=== PATIENT | female | born 1945 | race Caucasian/White ===

== ENCOUNTER 2017-02-10 21:54 | Emergency (ER) | payer MEDICARE, OTHER ==
[~2017-02-10] VITALS: Ht 165.1 cm; Wt 98.0 kg
[~2017-02-10 21:54] MED LIST: DIPH25TA31 PO; HYDR25TA4 PO; METO-169 PO; MONT5CHW17 PO; PANT1INJ3 IV; SUCR1SUS10 PO; SUCR1TAB PO
[2017-02-11 00:15] LABS: Urine RBC None Seen /hpf (0 - 4)
[2017-02-11 00:20] LABS: Hemoglobin 11.6 g/dL (12.2-16.2); Mean Platelet Volume 7.1 fL (6.9-10.8); Neutrophils # (auto) 10.3 uL; Nucleated Red Blood Cells % 0.1 %
[2017-02-11 00:22] LABS: Basophils # (auto) 0.1 uL; Basophils % (auto) 0.8 % (0.0-2.0); Eosinophils # (auto) 0.1 uL; Eosinophils % (auto) 1.2 % (0.0-7.0); Hematocrit 35.8 % (36.0-46.0); Lymphocytes # (auto) 0.8 uL; Lymphocytes % (auto) 6.9 % (10.0-50.0); Mean Corpuscular Hemoglobin 26.5 pg (28.0-32.0); Mean Corpuscular Hgb Conc. 32.4 g/dL (32.0-36.0); Mean Corpuscular Volume 81.8 fL (80.0-100.0); Monocytes # (auto) 0.8 uL; Monocytes % (auto) 6.7 % (0.0-12.0); Neutrophils % (auto) 84.4 % (37.0-80.0); Platelet Count (auto) 277 10^3/uL (140-450); Red Cell Distribution Width 15.9 % (11.8-14.3); White Blood Cell 12.3 10^3/uL (4.4-10.8)
[2017-02-11 00:28] LABS: Urine Bilirubin Negative (Negative); Urine Blood Negative /uL (Negative); Urine Color Colorless (Yellow); Urine Glucose Normal (Normal); Urine Ketone Negative (Negative); Urine Mucus FEW (None Seen); Urine Nitrite Negative (Negative); Urine Squamous Epithelial Cell FEW /hpf (<5); Urine Urobilinogen Normal (Negative)
[2017-02-11 00:36] LABS: Albumin 3.1 g/dL (3.4-5.0); Anion Gap 8 (5-15); Aspartate Aminotransferase 34 U/L (15-37); Blood Urea Nitrogen 6 mg/dL (7-18); Calcium 8.7 mg/dL (8.5-10.1); Carbon Dioxide 30 mmol/L (21-32); Chloride 90 mmol/L (98-107); GFR African American 186 mL/min; GFR Non-African American 154 mL/min; Glucose 99 mg/dL (74-106); Magnesium 1.7 mg/dL (1.6-2.6); Sodium 128 mmol/L (136-145)
[2017-02-11 00:41] LABS: Alkaline Phosphatase 86 U/L (45-117); Bilirubin, Total 0.4 mg/dL (0.2-1.0); Total Protein 6.6 g/dL (6.4-8.2)
[2017-02-11 00:45] LABS: B-Type Natriuretic Peptide 90.5 pg/mL (0-100); Temperature: 21.5 C (20.0-25.0)
[2017-02-11 01:02] LABS: Allen Test Yes; Base Excess 5.8 mmol/L (-2.0-2.0); Blood 02Sat 91.3 % (96-100); Blood COHb 0.3 % (0.5-1.5); Blood MetHb 0.3 % (0.0-1.5); HCO3 31.6 mmol/L (22-26.0); HHb 8.6 % (0.0-5.0); MODE NASAL CANNULA; O2Hb 90.8 % (94.0-97.0); PCO2 51.1 mmHg (35.0-45.0); PCO2(T) 50.4 mmHg (35.0-45.0); PO2(T) 62.7 mmHg (80.0-100.0); Sample Type Arterial; pH 7.409 (7.350-7.450)
[2017-02-11] MEDS ORDERED: HCTZ 25 MG TAB PO ONE (02:45)
[2017-02-11 06:12] VITALS: BP 149/67
[2017-02-11] MEDS ORDERED: ACETAMINOPHEN 500 MG TAB PO PRN (06:45)
[2017-02-11] MEDS ORDERED: ONDANSETRON HCL 4 MG/2 ML VIAL IV PRN (06:45)
[2017-02-11] MEDS ORDERED: ALBUTEROL SULF 2.5 MG/0.5ML(0.5%) NEB SOLN NEB PRN (06:45)
[2017-02-11] MEDS ORDERED: HYDROcodone-ACET 5/325MG TAB PO PRN (06:45)
[2017-02-11] MEDS ORDERED: TEMAZEPAM 15 MG CAP PO PRN (06:45)
[2017-02-11] MEDS ORDERED: SUCRALFATE 1 GM TAB PO SCH (07:00)
[2017-02-11] MEDS ORDERED: amLODIPine BESYLATE 5 MG TAB PO SCH (10:00)
[2017-02-11] MEDS ORDERED: PANTOPRAZOLE 40 MG TAB PO SCH (10:00)
[2017-02-11] MEDS ORDERED: MONTELUKAST SODIUM 10 MG TAB PO SCH (22:00)
[2017-02-14] MEDS ORDERED: MONT5CHW17 PO (11:39)
[2017-02-14] MEDS ORDERED: HYDR25TA4 PO (11:42)
[2017-02-14] MEDS ORDERED: PANT40TA2 PO (11:42)
[2017-02-14] MEDS ORDERED: ATOR10TA52 PO (11:42)
[2017-02-14] MEDS ORDERED: AML5T PO (11:42)
== END 2017-02-11 06:44 | disposition left against medical advice (07) ==
LOC: EDBD 21:54 → ER 21:56
DX: R60.0 Localized edema (principal); I11.0 Hypertensive heart disease with heart failure; I50.9 Heart failure, unspecified; D72.829 Elevated white blood cell count, unspecified; E87.1 Hypo-osmolality and hyponatremia; E78.5 Hyperlipidemia, unspecified; J44.9 Chronic obstructive pulmonary disease, unspecified; Z88.2 Allergy status to sulfonamides; Z88.6 Allergy status to analgesic agent; Z88.8 Allergy status to other drugs, medicaments and biological substances; Z86.718 Personal history of other venous thrombosis and embolism
CPT/HCPCS: 36415; 36600; 71010; 74176; 80053; 81001; 82805; 83735; 83880; 84484; 85025; 85379; 93005; 93970

== ENCOUNTER 2017-02-22 18:12 | Emergency (ER) | payer MEDICARE, OTHER ==
[~2017-02-22] VITALS: Ht 165.1 cm; Wt 90.7 kg
[~2017-02-22 18:12] MED LIST changes: +AML5T PO; +ATOR10TA52 PO; +PANT40TA2 PO
[2017-02-22 21:52] LABS: Basophils # (auto) 0.1 uL; Basophils % (auto) 0.9 % (0.0-2.0); Eosinophils # (auto) 0.2 uL; Hemoglobin 11.7 g/dL (12.2-16.2)
[2017-02-22 21:54] LABS: Eosinophils % (auto) 2.2 % (0.0-7.0); Hematocrit 36.2 % (36.0-46.0); Lymphocytes # (auto) 0.9 uL; Lymphocytes % (auto) 9.6 % (10.0-50.0); Mean Corpuscular Hemoglobin 26.6 pg (28.0-32.0); Mean Corpuscular Hgb Conc. 32.5 g/dL (32.0-36.0); Monocytes % (auto) 11.1 % (0.0-12.0); Neutrophils % (auto) 76.2 % (37.0-80.0); Platelet Count (auto) 252 10^3/uL (140-450); Red Blood Cells 4.41 10^6/uL (4.0-5.20); Red Cell Distribution Width 15.3 % (11.8-14.3); White Blood Cell 9.2 10^3/uL (4.4-10.8)
[2017-02-22 22:31] LABS: Urine Bacteria NONE SEEN /hpf (None Seen); Urine Blood Negative /uL (Negative); Urine Mucus FEW (None Seen); Urine Specific Gravity 1.009 (1.001-1.035); Urine WBC 4 /hpf (0 - 5)
[2017-02-22 22:34] LABS: Alanine Aminotransferase 26 U/L (13-56); Albumin 3.1 g/dL (3.4-5.0); Alkaline Phosphatase 79 U/L (45-117); Anion Gap 6 (5-15); Aspartate Aminotransferase 22 U/L (15-37); BUN/Creatinine Ratio 18.9; Bilirubin, Total 0.4 mg/dL (0.2-1.0); Blood Urea Nitrogen 10 mg/dL (7-18); Calcium 8.8 mg/dL (8.5-10.1); Carbon Dioxide 35 mmol/L (21-32); Chloride 87 mmol/L (98-107); GFR African American 146 mL/min; GFR Non-African American 121 mL/min; Glucose 81 mg/dL (74-106); Magnesium 2.1 mg/dL (1.6-2.6); Potassium 4.5 mmol/L (3.5-5.1); Sodium 128 mmol/L (136-145); Total Protein 6.6 g/dL (6.4-8.2)
[2017-02-23 02:54] LABS: Alcohol, Urine < 3.0 mg/dL (0-5); Amphetamine Screen, Urine NEGATIVE (NEGATIVE); Barbiturate Scree,Urine NEGATIVE (NEGATIVE); Benzodiazephine Screen, Urine NEGATIVE (NEGATIVE); Cannabinoid Screen, Urine NEGATIVE (NEGATIVE); Cocaine Screen, Urine NEGATIVE (NEGATIVE); Opiate Scree,Urine NEGATIVE (NEGATIVE); Phencyclidine Screen, Urine NEGATIVE (NEGATIVE)
[2017-02-23] MEDS ORDERED: diphenhdrAMINE HCL 50 MG/1 ML VL ONE (04:12)
[2017-02-23] MEDS ORDERED: methylPREDNISolone SOD SUCC 125 MG/2 ML VL IV ONE ×2 (04:20→04:45)
[2017-02-23] MEDS ORDERED: FUROSEMIDE 40 MG/4 ML VIAL IV ONE (04:20)
[2017-02-23] MEDS ORDERED: diphenhdrAMINE HCL 50 MG/1 ML VL IV ONE (04:20)
[2017-02-23] MEDS ORDERED: methylPREDNISolone SOD SUCC 125 MG/2 ML VL ONE (05:03)
[2017-02-23] MEDS: ALBUTEROL SULF 2.5 MG/0.5ML(0.5%) NEB SOLN NEB SCH ×3 (06:29→18:20)
[2017-02-23] MEDS: IPRATROPIUM BROM 0.5 MG/2.5ML INH SOL NEB SCH ×3 (06:29→18:20)
[2017-02-23 06:36] LABS: Basophils # (auto) 0.1 uL; Basophils % (auto) 0.8 % (0.0-2.0); Eosinophils # (auto) 0.1 uL; Eosinophils % (auto) 1.6 % (0.0-7.0); Hematocrit 36.5 % (36.0-46.0); Hemoglobin 12.1 g/dL (12.2-16.2); Lymphocytes # (auto) 0.4 uL; Lymphocytes % (auto) 4.9 % (10.0-50.0); Mean Corpuscular Hemoglobin 27.1 pg (28.0-32.0); Mean Corpuscular Hgb Conc. 33.1 g/dL (32.0-36.0); Mean Corpuscular Volume 81.8 fL (80.0-100.0); Monocytes # (auto) 0.5 uL; Monocytes % (auto) 5.3 % (0.0-12.0); Neutrophils # (auto) 7.8 uL; Neutrophils % (auto) 87.4 % (37.0-80.0); Platelet Count (auto) 268 10^3/uL (140-450); Red Blood Cells 4.47 10^6/uL (4.0-5.20); White Blood Cell 8.9 10^3/uL (4.4-10.8)
[2017-02-23] MEDS: SODIUM CHLORIDE 0.9% 1,000 ML IV SCH ×2 (06:49→18:36)
[2017-02-23 06:50] LABS: Calcium 8.9 mg/dL (8.5-10.1); Potassium 4.4 mmol/L (3.5-5.1)
[2017-02-23 07:48] VITALS: BP 146/66
[2017-02-23] MEDS ORDERED: LEVOFLOXACIN 500MG 100 ML IV ONE (14:00)
[2017-02-23 21:35] VITALS: BP 132/69
[2017-02-24] MEDS ORDERED: LEVOFLOXACIN 500MG 100 ML IV SCH (10:00)
== END 2017-02-22 22:04 ==
LOC: EDBD 18:12 → ER 18:12 → UNDOADMIN 18:13 → OVERFLOW 18:13 → ER 22:04
DX: G93.41 Metabolic encephalopathy (principal); J44.9 Chronic obstructive pulmonary disease, unspecified; I11.0 Hypertensive heart disease with heart failure; I50.9 Heart failure, unspecified; E78.5 Hyperlipidemia, unspecified; Z90.49 Acquired absence of other specified parts of digestive tract; Z90.710 Acquired absence of both cervix and uterus; Z88.1 Allergy status to other antibiotic agents; Z79.899 Other long term (current) drug therapy
CPT/HCPCS: 36415; 36600; 70450; 71045; 80048; 80053; 80307; 81001; 82140; 82805; 83605; 83735; 83880; 84484; 85025; 87040; 93005; 94640; 96365; 96375; 99285; J7030

== ENCOUNTER 2017-02-25 22:06 | Inpatient (IN) | payer MEDICARE, OTHER ==
[~2017-02-25] VITALS: Ht 167.6 cm; Wt 76.0 kg
[2017-02-26 00:45] LABS: Basophils # (auto) 0.1 uL; Basophils % (auto) 1.6 % (0.0-2.0); Eosinophils # (auto) 0.2 uL; Eosinophils % (auto) 2.8 % (0.0-7.0); Hematocrit 37.4 % (36.0-46.0); Hemoglobin 12.2 g/dL (12.2-16.2); Lymphocytes # (auto) 0.6 uL; Lymphocytes % (auto) 7.9 % (10.0-50.0); Mean Corpuscular Hgb Conc. 32.7 g/dL (32.0-36.0); Mean Corpuscular Volume 82.5 fL (80.0-100.0); Monocytes # (auto) 0.9 uL; Monocytes % (auto) 11.4 % (0.0-12.0); Neutrophils # (auto) 6.1 uL; Neutrophils % (auto) 76.3 % (37.0-80.0); Nucleated Red Blood Cells % 0.1 %; Platelet Count (auto) 287 10^3/uL (140-450); Red Blood Cells 4.53 10^6/uL (4.0-5.20); Red Cell Distribution Width 15.7 % (11.8-14.3)
[2017-02-26 01:02] LABS: Alanine Aminotransferase 24 U/L (13-56); Albumin 3.1 g/dL (3.4-5.0); Anion Gap 3 (5-15); Aspartate Aminotransferase 19 U/L (15-37); BUN/Creatinine Ratio 29.4; Blood Urea Nitrogen 15 mg/dL (7-18); Calcium 8.6 mg/dL (8.5-10.1); Carbon Dioxide 34 mmol/L (21-32); Chloride 94 mmol/L (98-107); GFR African American 153 mL/min; GFR Non-African American 126 mL/min; Glucose 96 mg/dL (74-106); Magnesium 2.1 mg/dL (1.6-2.6); Potassium 4.9 mmol/L (3.5-5.1); Sodium 131 mmol/L (136-145)
[2017-02-26 01:07] LABS: Alkaline Phosphatase 80 U/L (45-117); Bilirubin, Total 0.3 mg/dL (0.2-1.0); INR 0.95 (0.9-1.15); Partial Thromboplastin Time 29.4 sec (22.64-33.71); Prothrombin Time 10.4 sec (9.37-12.3); Total Protein 6.4 g/dL (6.4-8.2)
[2017-02-26] MEDS ORDERED: IPRATROPIUM BROM 0.5 MG/2.5ML INH SOL NEB ONE (01:45)
[2017-02-26] MEDS ORDERED: ALBUTEROL SULF 2.5 MG/0.5ML(0.5%) NEB SOLN NEB ONE (01:45)
[2017-02-26] MEDS ORDERED: IOHEXOL 350 MG/ML 100ML IJ ONE (03:37)
[2017-02-26] MEDS ORDERED: ACETAMINOPHEN 325 MG TAB PO PRN (07:00)
[2017-02-26] MEDS ORDERED: TEMAZEPAM 15 MG CAP PO PRN (07:00)
[2017-02-26] MEDS ORDERED: NITROGLYCERIN 0.4 MG SL TAB SL PRN (07:00)
[2017-02-26] MEDS ORDERED: HYDROcodone-ACET 5/325MG TAB PO PRN (07:00)
[2017-02-26] MEDS ORDERED: MORPHINE SULFATE 4 MG/ML SYR/VIAL IV PRN (07:00)
[2017-02-26] MEDS ORDERED: ONDANSETRON HCL 4 MG/2 ML VIAL IV PRN (07:00)
[2017-02-26] MEDS ORDERED: MORPHINE SULF INJ 2 MG/ML SYRINGE 1ML IV PRN (07:15)
[2017-02-26 09:21] VITALS: BP 158/79
[2017-02-26] MEDS: HCTZ 25 MG TAB PO SCH (10:34)
[2017-02-26] MEDS: METOPROLOL TARTRATE 50 MG TAB PO SCH (10:34)
[2017-02-26] MEDS: amLODIPine BESYLATE 5 MG TAB PO SCH (10:35)
[2017-02-26] MEDS: ENOXAPARIN SOD 40 MG/0.4 ML SYRINGE SC SCH (10:36)
[2017-02-26] MEDS: PANTOPRAZOLE 40 MG TAB PO SCH (10:36)
[2017-02-26 13:22] LABS: Urine Bacteria FEW /hpf (None Seen); Urine Blood 1+ /uL (Negative); Urine WBC 20 /hpf (0 - 5)
[2017-02-26] MEDS: ALBUTEROL SULF 2.5 MG/0.5ML(0.5%) NEB SOLN NEB PRN ×2 (13:33→19:41)
[2017-02-26] MEDS: IPRATROPIUM BROM 0.5 MG/2.5ML INH SOL NEB PRN ×2 (13:33→19:41)
[2017-02-26 17:00] VITALS: BP 151/95
[2017-02-26] MEDS ORDERED: LEVOFLOXACIN 500MG 100 ML IV ONE (17:15)
[2017-02-26] MEDS ORDERED: VANCOMYCIN PER PHARMACY 0 MG IV SCH (17:15)
[2017-02-26] MEDS ORDERED: LORazepam 2MG/ML-1ML VIAL IV PRN (17:30)
[2017-02-26 20:00] VITALS: BP 131/67
[2017-02-26] MEDS: VANCOMYCIN 1GM/250ML 250 ML IV SCH (20:23)
[2017-02-26] MEDS: MONTELUKAST SODIUM 10 MG TAB PO SCH (21:43)
[2017-02-26] MEDS: ATORVASTATIN 20 MG TAB PO SCH (21:44)
[2017-02-27 05:00] VITALS: BP 148/60
[2017-02-27 07:31] LABS: Basophils # (auto) 0.1 uL; Basophils % (auto) 0.8 % (0.0-2.0); Eosinophils # (auto) 0.2 uL; Eosinophils % (auto) 1.5 % (0.0-7.0); Hematocrit 39.9 % (36.0-46.0); Hemoglobin 12.9 g/dL (12.2-16.2); Lymphocytes # (auto) 0.6 uL; Lymphocytes % (auto) 5.6 % (10.0-50.0); Mean Corpuscular Hemoglobin 26.1 pg (28.0-32.0); Mean Corpuscular Hgb Conc. 32.2 g/dL (32.0-36.0); Mean Corpuscular Volume 81.1 fL (80.0-100.0); Monocytes # (auto) 0.6 uL; Monocytes % (auto) 6.1 % (0.0-12.0); Neutrophils # (auto) 8.9 uL; Platelet Count (auto) 286 10^3/uL (140-450); Red Blood Cells 4.92 10^6/uL (4.0-5.20); Red Cell Distribution Width 15.7 % (11.8-14.3); White Blood Cell 10.4 10^3/uL (4.4-10.8)
[2017-02-27 07:42] LABS: Albumin 3.1 g/dL (3.4-5.0); BUN/Creatinine Ratio 26.1; Potassium 4.2 mmol/L (3.5-5.1)
[2017-02-27 07:45] LABS: Bilirubin, Total 0.5 mg/dL (0.2-1.0); Total Protein 6.5 g/dL (6.4-8.2)
[2017-02-27] MEDS: VANCOMYCIN 1GM/250ML 250 ML IV SCH ×2 (08:00→20:20)
[2017-02-27 08:59] VITALS: BP 146/81
[2017-02-27] MEDS: ENOXAPARIN SOD 40 MG/0.4 ML SYRINGE SC SCH (10:00)
[2017-02-27] MEDS: PANTOPRAZOLE 40 MG TAB PO SCH (10:22)
[2017-02-27] MEDS: METOPROLOL TARTRATE 50 MG TAB PO SCH (10:23)
[2017-02-27] MEDS: amLODIPine BESYLATE 5 MG TAB PO SCH (10:23)
[2017-02-27] MEDS: HCTZ 25 MG TAB PO SCH (10:24)
[2017-02-27] MEDS: LEVOFLOXACIN 500MG 100 ML IV SCH (10:24)
[2017-02-27] MEDS ORDERED: SODIUM CHLORIDE 0.9% 1,000 ML IV ONE (11:15)
[2017-02-27 12:53] VITALS: BP 146/78
[2017-02-27 17:00] VITALS: BP 148/74
[2017-02-27 20:00] VITALS: BP 145/76
[2017-02-27] MEDS: ATORVASTATIN 20 MG TAB PO SCH (21:25)
[2017-02-27] MEDS: MONTELUKAST SODIUM 10 MG TAB PO SCH (21:26)
[2017-02-27 22:00] VITALS: BP 145/76
[2017-02-28 05:00] VITALS: BP 146/78
[2017-02-28] MEDS: VANCOMYCIN 1GM/250ML 250 ML IV SCH ×2 (08:00→20:06)
[2017-02-28 08:01] VITALS: BP 145/76
[2017-02-28 09:00] VITALS: BP 130/91
[2017-02-28] MEDS: ENOXAPARIN SOD 40 MG/0.4 ML SYRINGE SC SCH (10:00)
[2017-02-28] MEDS: PANTOPRAZOLE 40 MG TAB PO SCH (10:04)
[2017-02-28] MEDS: METOPROLOL TARTRATE 50 MG TAB PO SCH (10:05)
[2017-02-28] MEDS: HCTZ 25 MG TAB PO SCH (10:06)
[2017-02-28] MEDS: LEVOFLOXACIN 500MG 100 ML IV SCH (10:07)
[2017-02-28] MEDS: amLODIPine BESYLATE 5 MG TAB PO SCH (10:07)
[2017-02-28] MEDS: SUCRALFATE 1 GM TAB PO SCH ×2 (11:30→18:19)
[2017-02-28 13:00] VITALS: BP 128/78
[2017-02-28 17:00] VITALS: BP 131/74
[2017-02-28 20:00] VITALS: BP 132/68
[2017-02-28] MEDS ORDERED: PANTOPRAZOLE 40 MG TAB PO ONE (21:00)
[2017-02-28] MEDS: ATORVASTATIN 20 MG TAB PO SCH (21:16)
[2017-02-28] MEDS: MONTELUKAST SODIUM 10 MG TAB PO SCH (21:16)
[2017-03-01 04:25] VITALS: BP 131/74
[2017-03-01 04:59] VITALS: BP 139/77
[2017-03-01 05:48] LABS: Eosinophils # (auto) 0.3 uL; Lymphocytes # (auto) 0.6 uL; Lymphocytes % (auto) 6.9 % (10.0-50.0); Monocytes # (auto) 0.8 uL; Red Cell Distribution Width 15.2 % (11.8-14.3)
[2017-03-01 05:51] LABS: Basophils # (auto) 0 uL; Basophils % (auto) 0.5 % (0.0-2.0); Eosinophils % (auto) 3.1 % (0.0-7.0); Hematocrit 38.5 % (36.0-46.0); Hemoglobin 12.5 g/dL (12.2-16.2); Mean Corpuscular Hemoglobin 26.5 pg (28.0-32.0); Mean Corpuscular Hgb Conc. 32.5 g/dL (32.0-36.0); Mean Corpuscular Volume 81.6 fL (80.0-100.0); Monocytes % (auto) 8.7 % (0.0-12.0); Neutrophils # (auto) 7.5 uL; Neutrophils % (auto) 80.8 % (37.0-80.0); Platelet Count (auto) 254 10^3/uL (140-450); Red Blood Cells 4.72 10^6/uL (4.0-5.20); White Blood Cell 9.2 10^3/uL (4.4-10.8)
[2017-03-01 06:13] LABS: Albumin 3.1 g/dL (3.4-5.0); BUN/Creatinine Ratio 14.5; Bilirubin, Total 0.6 mg/dL (0.2-1.0); Calcium 8.5 mg/dL (8.5-10.1); Potassium 3.5 mmol/L (3.5-5.1); Total Protein 6.3 g/dL (6.4-8.2)
[2017-03-01] MEDS: SUCRALFATE 1 GM TAB PO SCH ×3 (06:54→17:00)
[2017-03-01] MEDS: IPRATROPIUM BROM 0.5 MG/2.5ML INH SOL NEB PRN (07:14)
[2017-03-01] MEDS: ALBUTEROL SULF 2.5 MG/0.5ML(0.5%) NEB SOLN NEB PRN (07:14)
[2017-03-01 09:00] VITALS: BP 140/66
[2017-03-01] MEDS: VANCOMYCIN 1GM/250ML 250 ML IV SCH (09:06)
[2017-03-01] MEDS: ENOXAPARIN SOD 40 MG/0.4 ML SYRINGE SC SCH (10:08)
[2017-03-01] MEDS: HCTZ 25 MG TAB PO SCH (10:08)
[2017-03-01] MEDS: LEVOFLOXACIN 500MG 100 ML IV SCH (10:08)
[2017-03-01] MEDS: METOPROLOL TARTRATE 50 MG TAB PO SCH (10:09)
[2017-03-01] MEDS: amLODIPine BESYLATE 5 MG TAB PO SCH (10:09)
[2017-03-01] MEDS: PANTOPRAZOLE 40 MG TAB PO SCH (10:09)
[2017-03-01] MEDS ORDERED: SODIUM CHLORIDE 0.9% 1,000 ML IV ONE (10:15)
[2017-03-01 13:00] VITALS: BP 135/62
== END 2017-03-01 18:00 | disposition home or self-care (01) | DRG 291 ==
LOC: EDBD 22:06 → ER 22:15 → OVERFLOW 22:16 → TELE-EAST 02-26 15:59 → EAST 02-27 23:00
PROVIDERS: ADMIT Nurse Practitioner; ATTEND Family Medicine
DX: I11.0 Hypertensive heart disease with heart failure (principal); J18.1 Lobar pneumonia, unspecified organism; J96.90 Respiratory failure, unspecified, unspecified whether with hypoxia or hypercapnia; G93.41 Metabolic encephalopathy; E87.2 Acidosis; E87.1 Hypo-osmolality and hyponatremia; J44.1 Chronic obstructive pulmonary disease with (acute) exacerbation; J44.0 Chronic obstructive pulmonary disease with (acute) lower respiratory infection; N39.0 Urinary tract infection, site not specified; Q85.9 Phakomatosis, unspecified; I50.33 Acute on chronic diastolic (congestive) heart failure; E11.9 Type 2 diabetes mellitus without complications; F03.90 Unspecified dementia, unspecified severity, without behavioral disturbance, psychotic disturbance, mood disturbance, and anxiety; W19.XXXA Unspecified fall, initial encounter; E78.5 Hyperlipidemia, unspecified; G40.409 Other generalized epilepsy and epileptic syndromes, not intractable, without status epilepticus; R79.1 Abnormal coagulation profile; Z90.710 Acquired absence of both cervix and uterus; Z82.5 Family history of asthma and other chronic lower respiratory diseases; Z82.49 Family history of ischemic heart disease and other diseases of the circulatory system; Z88.8 Allergy status to other drugs, medicaments and biological substances; Z88.2 Allergy status to sulfonamides; Z90.49 Acquired absence of other specified parts of digestive tract; Z87.891 Personal history of nicotine dependence; Y93.89 Activity, other specified; Y99.8 Other external cause status; Y92.009 Unspecified place in unspecified non-institutional (private) residence as the place of occurrence of the external cause
CPT/HCPCS: 36415; 71045; 71275; 80053; 80202; 81001; 83735; 83880; 84484; 85025; 85379; 85610; 85730; 87040; 87081; 87086; 93005; 94640; G0378; J1956

== ENCOUNTER 2017-04-30 20:44 | Inpatient (IN) | payer MEDICARE, OTHER ==
[~2017-04-30] VITALS: Ht 165.1 cm; Wt 67.9 kg
[2017-04-30 22:19] LABS: Urine Bacteria MANY /hpf (None Seen); Urine Blood Negative /uL (Negative); Urine Hyaline Cast FEW /lpf (0 - 2); Urine Mucus FEW (None Seen); Urine Specific Gravity 1.016 (1.001-1.035); Urine WBC 23 /hpf (0 - 5)
[2017-04-30 22:46] LABS: Basophils # (auto) 0.1 uL; Basophils % (auto) 0.4 % (0.0-2.0); Eosinophils # (auto) 0 uL; Eosinophils % (auto) 0.1 % (0.0-7.0); Hematocrit 39.9 % (36.0-46.0); Hemoglobin 13.3 g/dL (12.2-16.2); Lymphocytes # (auto) 0.2 uL; Lymphocytes % (auto) 1.7 % (10.0-50.0); Mean Corpuscular Hemoglobin 24.8 pg (28.0-32.0); Mean Corpuscular Hgb Conc. 33.4 g/dL (32.0-36.0); Mean Corpuscular Volume 74.5 fL (80.0-100.0); Monocytes # (auto) 0.1 uL; Monocytes % (auto) 0.9 % (0.0-12.0); Neutrophils # (auto) 13.4 uL; Neutrophils % (auto) 96.9 % (37.0-80.0); Nucleated Red Blood Cells % 0.1 %; Platelet Count (auto) 155 10^3/uL (140-450); Red Blood Cells 5.36 10^6/uL (4.0-5.20); White Blood Cell 13.9 10^3/uL (4.4-10.8)
[2017-04-30 22:51] LABS: Red Cell Distribution Width 21.4 % (11.8-14.3)
[2017-04-30 23:03] LABS: Albumin 2.3 g/dL (3.4-5.0); BUN/Creatinine Ratio 74.5; Bilirubin, Total 0.4 mg/dL (0.2-1.0); Calcium 8.9 mg/dL (8.5-10.1); INR 0.97 (0.9-1.15); Partial Thromboplastin Time 28.4 sec (22.64-33.71); Potassium 4.9 mmol/L (3.5-5.1); Prothrombin Time 10.6 sec (9.37-12.3); Total Protein 5.6 g/dL (6.4-8.2)
[2017-05-01] MEDS ORDERED: SODIUM CHLORIDE 0.9% 1,000 ML IV SCH
[2017-05-01] MEDS ORDERED: ALBUMIN 5% 250 ML IV ONE ×2 (01:00)
[2017-05-01] MEDS ORDERED: SODIUM CHL 3% 500 ML IV ONE (02:00)
[2017-05-01] MEDS: NOREPINEPHRINE 8 MG/250ML KIT 250 ML IV SCH (02:00)
[2017-05-01 02:40] VITALS: BP 131/70
[2017-05-01] MEDS ORDERED: ONDANSETRON HCL 4 MG/2 ML VIAL IV PRN (05:15)
[2017-05-01] MEDS ORDERED: HYDROcodone-ACET 5/325MG TAB PO PRN (05:15)
[2017-05-01] MEDS ORDERED: PANTOPRAZOLE 40 MG/10 ML VIAL IV ONE (05:15)
[2017-05-01] MEDS ORDERED: ACETAMINOPHEN 325 MG TAB PO PRN (05:15)
[2017-05-01] MEDS: SODIUM CHLORIDE 0.9% 1,000 ML IV SCH ×2 (05:15→17:45)
[2017-05-01] MEDS ORDERED: NITROGLYCERIN 0.4 MG SL TAB SL PRN (05:15)
[2017-05-01] MEDS ORDERED: TEMAZEPAM 15 MG CAP PO PRN (05:15)
[2017-05-01] MEDS ORDERED: AZITHROMYCIN 500MG/ 250ML 250 ML IV ONE (06:00)
[2017-05-01] MEDS ORDERED: cefTRIAXone 1GM/10ml IVPUSH 10 ML IV ONE (06:00)
[2017-05-01 06:21] VITALS: BP 120/59
[2017-05-01 06:27] VITALS: BP 120/59
[2017-05-01 07:29] LABS: Hematocrit 33.2 % (36.0-46.0); Hemoglobin 10.7 g/dL (12.2-16.2)
[2017-05-01] MEDS ORDERED: SODIUM CHLORIDE 0.9% 1,000 ML IV ONE (09:30)
[2017-05-01] MEDS ORDERED: VANCOMYCIN PER PHARMACY 0 MG IV SCH (09:30)
[2017-05-01 09:45] VITALS: BP 113/65
[2017-05-01] MEDS ORDERED: VANCOMYCIN 1GM/250ML 250 ML IV SCH (11:00)
[2017-05-01 11:52] LABS: Hemoglobin 11.2 g/dL (12.2-16.2); Mean Corpuscular Hemoglobin 24.6 pg (28.0-32.0); Red Blood Cells 4.54 10^6/uL (4.0-5.20)
[2017-05-01 11:54] LABS: Hematocrit 34.2 % (36.0-46.0); Mean Corpuscular Hgb Conc. 32.7 g/dL (32.0-36.0); Mean Corpuscular Volume 75.4 fL (80.0-100.0); Platelet Count (auto) 173 10^3/uL (140-450); White Blood Cell 18.1 10^3/uL (4.4-10.8)
[2017-05-01 11:57] LABS: Red Cell Distribution Width 21.1 % (11.8-14.3)
[2017-05-01 11:58] LABS: Basophils % (manual) 0 (0.0-2.0); Blast Cells 0; Eosinophils % (manual) 0 (0-7); Metamyelocytes % 0; Myelocytes % 0; Promyelocytes % 0; Reactive Lymphocytes 0
[2017-05-01] MEDS ORDERED: BOOST PLUS 8 ounce PO SCH (12:00)
[2017-05-01 13:15] LABS: Albumin 2.8 g/dL (3.4-5.0); BUN/Creatinine Ratio 84.8; Bilirubin, Total 0.5 mg/dL (0.2-1.0); Potassium 4.3 mmol/L (3.5-5.1); Total Protein 5.6 g/dL (6.4-8.2)
[2017-05-01 13:35] VITALS: BP 105/53
[2017-05-01 14:05] LABS: Band Neutrophils % (manual) 3; Lymphocytes % (manual) 1 (10.0-50.0); Monocytes % (manual) 1 (0-12)
[2017-05-01] MEDS ORDERED: Boost Breeze 8 Ounces PO ONE (14:30)
[2017-05-01 18:36] LABS: Calcium 9.2 mg/dL (8.5-10.1); Potassium 4.4 mmol/L (3.5-5.1)
[2017-05-01] MEDS: Boost Breeze 8 Ounces PO SCH (18:58)
[2017-05-01] MEDS: ATORVASTATIN 20 MG TAB PO SCH (22:31)
[2017-05-01] MEDS: MONTELUKAST SODIUM 10 MG TAB PO SCH (22:31)
[2017-05-02] VITALS (97 sets, daily range): BP systolic 82–117; BP diastolic 38–66
[2017-05-02] MEDS: AZITHROMYCIN 500MG/ 250ML 250 ML IV SCH (06:01)
[2017-05-02] MEDS: cefTRIAXone 1GM/10ml IVPUSH 10 ML IV SCH (06:01)
[2017-05-02] MEDS: SODIUM CHLORIDE 0.9% 1,000 ML IV SCH ×2 (06:15→18:20)
[2017-05-02] MEDS: NOREPINEPHRINE 8 MG/250ML KIT 250 ML IV SCH (06:27)
[2017-05-02] MEDS: Boost Breeze 8 Ounces PO SCH ×3 (08:00→18:20)
[2017-05-02] MEDS: PANTOPRAZOLE 40 MG/10 ML VIAL IV SCH (10:00)
[2017-05-02 11:25] LABS: Basophils # (auto) 0.2 uL; Eosinophils # (auto) 0 uL; Hemoglobin 11.7 g/dL (12.2-16.2); Lymphocytes # (auto) 0.2 uL; Monocytes # (auto) 0.1 uL; Platelet Count (auto) 141 10^3/uL (140-450); White Blood Cell 19.7 10^3/uL (4.4-10.8)
[2017-05-02 11:27] LABS: Hematocrit 35.8 % (36.0-46.0); Lymphocytes % (auto) 0.9 % (10.0-50.0); Mean Corpuscular Hemoglobin 24.8 pg (28.0-32.0); Mean Corpuscular Hgb Conc. 32.6 g/dL (32.0-36.0); Monocytes % (auto) 0.5 % (0.0-12.0); Neutrophils # (auto) 19.2 uL; Neutrophils % (auto) 97.6 % (37.0-80.0); Red Blood Cells 4.71 10^6/uL (4.0-5.20)
[2017-05-02 11:34] LABS: Red Cell Distribution Width 21.7 % (11.8-14.3)
[2017-05-02] MEDS: LINEZOLID 600MG/300ML 300 ML IV SCH ×2 (11:42→23:00)
[2017-05-02 11:46] LABS: Albumin 2.4 g/dL (3.4-5.0); Bilirubin, Total 0.6 mg/dL (0.2-1.0); Calcium 9.8 mg/dL (8.5-10.1); Phosphorus 1.6 mg/dL (2.5-4.90); Potassium 4.4 mmol/L (3.5-5.1); Total Protein 5.5 g/dL (6.4-8.2)
[2017-05-02 18:41] LABS: Creatinine, Urine 30 mg/dL (30.0-125.0); Sodium Urine 12 mmol/L (40-220)
[2017-05-02 18:46] LABS: Urine Bacteria MANY /hpf (None Seen); Urine Blood 1+ /uL (Negative); Urine Specific Gravity 1.019 (1.001-1.035); Urine WBC 18 /hpf (0 - 5)
[2017-05-02] MEDS: ATORVASTATIN 20 MG TAB PO SCH (21:56)
[2017-05-02] MEDS: MONTELUKAST SODIUM 10 MG TAB PO SCH (21:57)
[2017-05-03] VITALS (101 sets, daily range): BP systolic 76–147; BP diastolic 42–102
[2017-05-03 04:35] LABS: Basophils # (auto) 0 uL; Basophils % (auto) 0.1 % (0.0-2.0); Eosinophils # (auto) 0 uL; Hemoglobin 11.5 g/dL (12.2-16.2); Lymphocytes # (auto) 0.2 uL; Lymphocytes % (auto) 1.2 % (10.0-50.0); Monocytes # (auto) 0.1 uL; Monocytes % (auto) 0.6 % (0.0-12.0); Neutrophils % (auto) 98.1 % (37.0-80.0); Red Blood Cells 4.56 10^6/uL (4.0-5.20)
[2017-05-03 04:38] LABS: Hematocrit 35.3 % (36.0-46.0); Mean Corpuscular Hemoglobin 25.2 pg (28.0-32.0); Mean Corpuscular Hgb Conc. 32.6 g/dL (32.0-36.0); Mean Corpuscular Volume 77.2 fL (80.0-100.0); Neutrophils # (auto) 17.9 uL; Nucleated Red Blood Cells % 0.1 %; Platelet Count (auto) 111 10^3/uL (140-450); White Blood Cell 18.3 10^3/uL (4.4-10.8)
[2017-05-03 04:50] LABS: Red Cell Distribution Width 21.8 % (11.8-14.3)
[2017-05-03 05:11] LABS: BUN/Creatinine Ratio 76.3; Bilirubin, Total 0.5 mg/dL (0.2-1.0); Calcium 9.5 mg/dL (8.5-10.1); Potassium 4.3 mmol/L (3.5-5.1); Total Protein 5.3 g/dL (6.4-8.2)
[2017-05-03] MEDS: cefTRIAXone 1GM/10ml IVPUSH 10 ML IV SCH (06:00)
[2017-05-03] MEDS: Boost Breeze 8 Ounces PO SCH ×3 (08:15→18:00)
[2017-05-03] MEDS: AZITHROMYCIN 500MG/ 250ML 250 ML IV SCH (10:45)
[2017-05-03] MEDS: PANTOPRAZOLE 40 MG/10 ML VIAL IV SCH (10:45)
[2017-05-03] MEDS: SODIUM CHLORIDE 0.9% 1,000 ML IV SCH ×2 (10:46→19:45)
[2017-05-03] MEDS: PRO-STAT 64 30ML PO SCH ×2 (12:00→18:00)
[2017-05-03] MEDS: NOREPINEPHRINE 8 MG/250ML KIT 250 ML IV SCH ×2 (12:25→21:00)
[2017-05-03] MEDS ORDERED: VANCOMYCIN PER PHARMACY 0 MG IV SCH (16:00)
[2017-05-03] MEDS: MORPHINE SULFATE 4 MG/ML SYR/VIAL IV PRN ×2 (18:15→18:58)
[2017-05-03] MEDS ORDERED: VANCOMYCIN 1,250 MG in D5W 5% 250 ML IV SCH (18:15)
[2017-05-03] MEDS ORDERED: LIDOCAINE 1% HCL (LOCAL ANESTH.) INJ 20ML MDV ID ONE (21:00)
[2017-05-03] MEDS: SODIUM CHLOR 0.9% PF (SALINE LOCK) 10ML VIAL IV SCH (21:39)
[2017-05-03] MEDS: ATORVASTATIN 20 MG TAB PO SCH (21:39)
[2017-05-03] MEDS: MONTELUKAST SODIUM 10 MG TAB PO SCH (22:00)
[2017-05-04] VITALS (105 sets, daily range): BP systolic 67–129; BP diastolic 27–69
[2017-05-04 04:09] LABS: Basophils # (auto) 0 uL; Eosinophils # (auto) 0 uL; Lymphocytes # (auto) 0.2 uL; Mean Corpuscular Hemoglobin 25.2 pg (28.0-32.0); Mean Corpuscular Hgb Conc. 32.7 g/dL (32.0-36.0); Monocytes # (auto) 0.1 uL; Platelet Count (auto) 67 10^3/uL (140-450)
[2017-05-04 04:10] LABS: Basophils % (auto) 0.2 % (0.0-2.0); Hematocrit 30.4 % (36.0-46.0); Hemoglobin 9.9 g/dL (12.2-16.2); Lymphocytes % (auto) 1.9 % (10.0-50.0); Mean Corpuscular Volume 76.9 fL (80.0-100.0); Monocytes % (auto) 0.7 % (0.0-12.0); Neutrophils # (auto) 11.3 uL; Neutrophils % (auto) 97.2 % (37.0-80.0); Red Blood Cells 3.95 10^6/uL (4.0-5.20); White Blood Cell 11.7 10^3/uL (4.4-10.8)
[2017-05-04 04:12] LABS: BUN/Creatinine Ratio 51.7; Calcium 9.1 mg/dL (8.5-10.1); Potassium 3.7 mmol/L (3.5-5.1); Red Cell Distribution Width 22.2 % (11.8-14.3)
[2017-05-04] MEDS: NOREPINEPHRINE 8 MG/250ML KIT 250 ML IV SCH ×3 (07:00→23:00)
[2017-05-04] MEDS: PRO-STAT 64 30ML PO SCH ×2 (08:00→18:00)
[2017-05-04] MEDS: Boost Breeze 8 Ounces PO SCH ×3 (08:00→18:00)
[2017-05-04] MEDS: SODIUM CHLORIDE 0.9% 1,000 ML IV SCH ×2 (08:15→22:13)
[2017-05-04] MEDS: PANTOPRAZOLE 40 MG/10 ML VIAL IV SCH (10:01)
[2017-05-04] MEDS: SODIUM CHLOR 0.9% PF (SALINE LOCK) 10ML VIAL IV SCH ×2 (10:02→22:13)
[2017-05-04] MEDS: MORPHINE SULFATE 4 MG/ML SYR/VIAL IV PRN (12:56)
[2017-05-04] MEDS ORDERED: PPN PER PHARMACY 0 ML IV SCH (13:30)
[2017-05-04] MEDS ORDERED: MAGNESIUM SULFATE 1GM/100ML 200 ML IV ONE (18:38)
[2017-05-04] MEDS: MAGNESIUM SULFATE 1GM/100ML 100 ML IV SCH ×2 (18:43→20:43)
[2017-05-04] MEDS ORDERED: DEXTROSE (50%) 50ML SYRG IV SCH (20:00)
[2017-05-04] MEDS: [UNRECOGNIZED DRUG - NUTRITION] IV NR (20:43)
[2017-05-04] MEDS: VANCOMYCIN 1,250 MG in D5W 5% 250 ML IV SCH (20:46)
[2017-05-04] MEDS: MONTELUKAST SODIUM 10 MG TAB PO SCH (22:13)
[2017-05-04] MEDS: ATORVASTATIN 20 MG TAB PO SCH (22:13)
[2017-05-04] MEDS: InsuLIN REG 1unit/0.01ml Soln (100units/ml) SC SCH (23:30)
[2017-05-04] MEDS: ACCU-CHEK COMFORT CURVE STRIP VI SCH (23:30)
[2017-05-05] VITALS (108 sets, daily range): BP systolic 90–123; BP diastolic 45–80
[2017-05-05] MEDS: MORPHINE SULFATE 4 MG/ML SYR/VIAL IV PRN (04:41)
[2017-05-05] MEDS: NOREPINEPHRINE 8 MG/250ML KIT 250 ML IV SCH ×2 (06:00→09:54)
[2017-05-05] MEDS: InsuLIN REG 1unit/0.01ml Soln (100units/ml) SC SCH ×3 (06:00→17:49)
[2017-05-05] MEDS: ACCU-CHEK COMFORT CURVE STRIP VI SCH ×3 (06:00→17:49)
[2017-05-05 06:02] LABS: Eosinophils # (auto) 0 uL; Hemoglobin 9.2 g/dL (12.2-16.2); Monocytes # (auto) 0.1 uL; Neutrophils # (auto) 10.7 uL; Neutrophils % (auto) 97.2 % (37.0-80.0); Platelet Count (auto) 50 10^3/uL (140-450)
[2017-05-05 06:05] LABS: Basophils # (auto) 0 uL; Basophils % (auto) 0.1 % (0.0-2.0); Hematocrit 28.1 % (36.0-46.0); Lymphocytes # (auto) 0.2 uL; Lymphocytes % (auto) 1.8 % (10.0-50.0); Mean Corpuscular Hemoglobin 25.5 pg (28.0-32.0); Mean Corpuscular Hgb Conc. 32.8 g/dL (32.0-36.0); Mean Corpuscular Volume 77.8 fL (80.0-100.0); Monocytes % (auto) 0.9 % (0.0-12.0); Nucleated Red Blood Cells % 0.1 %; Red Blood Cells 3.62 10^6/uL (4.0-5.20); White Blood Cell 11.1 10^3/uL (4.4-10.8)
[2017-05-05 06:20] LABS: Red Cell Distribution Width 22.5 % (11.8-14.3)
[2017-05-05] MEDS: IPRATROPIUM BROM 0.5 MG/2.5ML INH SOL NEB PRN ×2 (06:25→19:17)
[2017-05-05] MEDS: ALBUTEROL SULF 2.5 MG/0.5ML(0.5%) NEB SOLN NEB PRN ×2 (06:25→19:17)
[2017-05-05 06:42] LABS: Albumin 1.5 g/dL (3.4-5.0); Bilirubin, Total 0.6 mg/dL (0.2-1.0); Calcium 8.9 mg/dL (8.5-10.1); Magnesium 2.3 mg/dL (1.6-2.6); Phosphorus 1.2 mg/dL (2.5-4.90); Potassium 3.9 mmol/L (3.5-5.1); Pre Albumin 4.9 mg/dL (20.0-40.0); Total Protein 4.7 g/dL (6.4-8.2)
[2017-05-05] MEDS ORDERED: SODIUM PHOSPHATES 40 MEQ in D5W 5% 250 ML IV ONE (09:00)
[2017-05-05] MEDS: Boost Breeze 8 Ounces PO SCH ×3 (09:25→17:49)
[2017-05-05] MEDS: PRO-STAT 64 30ML PO SCH ×2 (09:26→17:49)
[2017-05-05] MEDS: PANTOPRAZOLE 40 MG/10 ML VIAL IV SCH (09:36)
[2017-05-05] MEDS: SODIUM CHLOR 0.9% PF (SALINE LOCK) 10ML VIAL IV SCH (09:36)
[2017-05-05] MEDS ORDERED: POTASSIUM CHL 20MEQ/100ML 100 ML IV ONE (14:45)
[2017-05-05] MEDS: MAGNESIUM SULFATE 1GM/100ML 100 ML IV SCH ×4 (15:43→20:33)
[2017-05-05] MEDS: [UNRECOGNIZED DRUG - NUTRITION] IV NR (19:49)
[2017-05-05] MEDS ORDERED: PPN PER PHARMACY IV NR ×10 (20:00)
[2017-05-05] MEDS: MONTELUKAST SODIUM 10 MG TAB PO SCH (21:12)
[2017-05-05] MEDS: ATORVASTATIN 20 MG TAB PO SCH (21:12)
[2017-05-05] MEDS: VANCOMYCIN 1,250 MG in D5W 5% 250 ML IV SCH (21:43)
[2017-05-06] VITALS (91 sets, daily range): BP systolic 84–120; BP diastolic 41–69
[2017-05-06] MEDS: InsuLIN REG 1unit/0.01ml Soln (100units/ml) SC SCH ×4 (01:21→18:00)
[2017-05-06] MEDS: ACCU-CHEK COMFORT CURVE STRIP VI SCH ×4 (01:22→18:28)
[2017-05-06] MEDS: SODIUM CHLOR 0.9% PF (SALINE LOCK) 10ML VIAL IV SCH ×2 (01:23→09:47)
[2017-05-06 04:17] LABS: Albumin 1.4 g/dL (3.4-5.0); BUN/Creatinine Ratio 84.2; Bilirubin, Total 0.5 mg/dL (0.2-1.0); Calcium 8.7 mg/dL (8.5-10.1); Magnesium 2.8 mg/dL (1.6-2.6); Phosphorus 3.3 mg/dL (2.5-4.90); Potassium 3.9 mmol/L (3.5-5.1); Total Protein 4.6 g/dL (6.4-8.2)
[2017-05-06] MEDS: ALBUTEROL SULF 2.5 MG/0.5ML(0.5%) NEB SOLN NEB PRN ×2 (06:20→12:30)
[2017-05-06] MEDS: IPRATROPIUM BROM 0.5 MG/2.5ML INH SOL NEB PRN ×2 (06:20→12:30)
[2017-05-06] MEDS: Boost Breeze 8 Ounces PO SCH ×3 (08:00→18:00)
[2017-05-06] MEDS: PRO-STAT 64 30ML PO SCH ×2 (08:00→18:00)
[2017-05-06] MEDS: MORPHINE SULFATE 4 MG/ML SYR/VIAL IV PRN ×2 (08:15→14:39)
[2017-05-06] MEDS: SODIUM CHLORIDE 0.9% 1,000 ML IV SCH ×2 (08:53→20:00)
[2017-05-06] MEDS: PANTOPRAZOLE 40 MG/10 ML VIAL IV SCH (09:47)
[2017-05-06] MEDS: ERTAPENEM SOD INJ 1 GM in SODIUM CHL 0.9% 50 ML IV SCH (13:05)
[2017-05-06] MEDS ORDERED: PPN PER PHARMACY IV NR ×10 (20:00)
[2017-05-06] MEDS: VANCOMYCIN 1,250 MG in D5W 5% 250 ML IV SCH (21:44)
[2017-05-06] MEDS: ATORVASTATIN 20 MG TAB PO SCH (22:00)
[2017-05-07] VITALS (89 sets, daily range): BP systolic 65–135; BP diastolic 29–71
[2017-05-07] MEDS: SODIUM CHLOR 0.9% PF (SALINE LOCK) 10ML VIAL IV SCH ×2 (03:31→09:54)
[2017-05-07] MEDS: MONTELUKAST SODIUM 10 MG TAB PO SCH (03:32)
[2017-05-07] MEDS: ACCU-CHEK COMFORT CURVE STRIP VI SCH ×4 (03:33→18:00)
[2017-05-07] MEDS: NOREPINEPHRINE 8 MG/250ML KIT 250 ML IV SCH (03:34)
[2017-05-07 03:44] LABS: Basophils # (auto) 0 uL; Eosinophils # (auto) 0 uL; Eosinophils % (auto) 0.1 % (0.0-7.0); Hemoglobin 8.5 g/dL (12.2-16.2); Lymphocytes # (auto) 0.2 uL; Mean Corpuscular Hemoglobin 25.3 pg (28.0-32.0); White Blood Cell 4.7 10^3/uL (4.4-10.8)
[2017-05-07 03:47] LABS: Basophils % (auto) 0.2 % (0.0-2.0); Hematocrit 25.9 % (36.0-46.0); Lymphocytes % (auto) 3.8 % (10.0-50.0); Mean Corpuscular Hgb Conc. 32.6 g/dL (32.0-36.0); Mean Corpuscular Volume 77.5 fL (80.0-100.0); Monocytes # (auto) 0.1 uL; Monocytes % (auto) 1.2 % (0.0-12.0); Neutrophils # (auto) 4.4 uL; Neutrophils % (auto) 94.7 % (37.0-80.0); Red Blood Cells 3.34 10^6/uL (4.0-5.20)
[2017-05-07 03:54] LABS: Albumin 1.2 g/dL (3.4-5.0); BUN/Creatinine Ratio 112.5; Bilirubin, Total 0.4 mg/dL (0.2-1.0); Calcium 8.6 mg/dL (8.5-10.1); Magnesium 2.1 mg/dL (1.6-2.6); Phosphorus 3.6 mg/dL (2.5-4.90); Potassium 3.4 mmol/L (3.5-5.1); Total Protein 4.5 g/dL (6.4-8.2)
[2017-05-07 03:56] LABS: Red Cell Distribution Width 22.9 % (11.8-14.3)
[2017-05-07 03:57] LABS: Platelet Count (auto) 18 10^3/uL (140-450)
[2017-05-07] MEDS ORDERED: ACETAMINOPHEN 500 MG TAB PO ONE (04:30)
[2017-05-07] MEDS ORDERED: diphenhdrAMINE HCL 25 MG CAP PO ONE ×2 (04:30)
[2017-05-07] MEDS ORDERED: LORATADINE 10 MG TAB PO ONE (04:30)
[2017-05-07 05:28] LABS: Hemoglobin 8.3 g/dL (12.2-16.2)
[2017-05-07 05:30] LABS: Hematocrit 25.6 % (36.0-46.0)
[2017-05-07 05:45] LABS: INR 1.05 (0.9-1.15); Prothrombin Time 11.4 sec (9.37-12.3)
[2017-05-07] MEDS: InsuLIN REG 1unit/0.01ml Soln (100units/ml) SC SCH ×4 (06:00→18:00)
[2017-05-07] MEDS: MORPHINE SULFATE 4 MG/ML SYR/VIAL IV PRN ×4 (06:42→17:04)
[2017-05-07] MEDS: PRO-STAT 64 30ML PO SCH ×2 (08:00→18:00)
[2017-05-07] MEDS: Boost Breeze 8 Ounces PO SCH ×3 (08:00→18:00)
[2017-05-07] MEDS ORDERED: VANCOMYCIN 1,250 MG in D5W 5% 250 ML IV SCH (09:00)
[2017-05-07] MEDS: PANTOPRAZOLE 40 MG/10 ML VIAL IV SCH (09:54)
[2017-05-07] MEDS ORDERED: TPN PER PHARMACY IV SCH (10:15)
[2017-05-07] MEDS: ERTAPENEM SOD INJ 1 GM in SODIUM CHL 0.9% 50 ML IV SCH (12:05)
[2017-05-07] MEDS ORDERED: LORazepam 2MG/ML-1ML VIAL IV PRN (12:15)
[2017-05-07] MEDS ORDERED: TPN PER PHARMACY IV NR ×10 (20:00)
== END 2017-05-07 22:25 | disposition expired | DRG 871 ==
LOC: EDBD 20:44 → ER 20:50 → OVERFLOW 20:51 → ICU WEST 05-01 23:10
PROVIDERS: ADMIT Nurse Practitioner; ATTEND Internal Medicine Pulmonary Disease
PROC: 5A09557 Assistance with Respiratory Ventilation, Greater than 96 Consecutive Hours, Continuous Positive Airway Pressure (ICD-10-PCS; principal; 2017-05-02)
PROC: 02HV33Z Insertion of Infusion Device into Superior Vena Cava, Percutaneous Approach (ICD-10-PCS; 2017-05-03)
PROC: 30233R1 Transfusion of Nonautologous Platelets into Peripheral Vein, Percutaneous Approach (ICD-10-PCS; 2017-05-07)
DX: A41.9 Sepsis, unspecified organism (principal); J96.00 Acute respiratory failure, unspecified whether with hypoxia or hypercapnia; N17.0 Acute kidney failure with tubular necrosis; L89.153 Pressure ulcer of sacral region, stage 3; D69.6 Thrombocytopenia, unspecified; J18.1 Lobar pneumonia, unspecified organism; E11.22 Type 2 diabetes mellitus with diabetic chronic kidney disease; I13.0 Hypertensive heart and chronic kidney disease with heart failure and stage 1 through stage 4 chronic kidney disease, or unspecified chronic kidney disease; E87.1 Hypo-osmolality and hyponatremia; I50.30 Unspecified diastolic (congestive) heart failure; J44.0 Chronic obstructive pulmonary disease with (acute) lower respiratory infection; N39.0 Urinary tract infection, site not specified; K92.2 Gastrointestinal hemorrhage, unspecified; E87.8 Other disorders of electrolyte and fluid balance, not elsewhere classified; D64.9 Anemia, unspecified; N18.3 Chronic kidney disease, stage 3 (moderate); E78.5 Hyperlipidemia, unspecified; E86.0 Dehydration; Z82.49 Family history of ischemic heart disease and other diseases of the circulatory system; Z82.5 Family history of asthma and other chronic lower respiratory diseases; Z90.710 Acquired absence of both cervix and uterus; Z90.49 Acquired absence of other specified parts of digestive tract; Z79.899 Other long term (current) drug therapy; Z88.8 Allergy status to other drugs, medicaments and biological substances; Z88.5 Allergy status to narcotic agent; Z88.2 Allergy status to sulfonamides
CPT/HCPCS: 36415; 36569; 36600; 71045; 74176; 80048; 80053; 80202; 81001; 82040; 82533; 82570; 82805; 82962; 83605; 83735; 83880; 83935; 84100; 84295; 84300; 84443; 84478; 84484; 85007; 85014; 85018; 85025; 85027; 85379; 85384; 85610; 85730; 86850; 86900; 86901; 87040; 87077; 87081; 87086; 87088; 87186; 93005; 93306; 94640; 94660; 94761; 96365; 96366; 96375; C9113; G0378; J1335; J1815; J2405; J3480; J7060; J7131